=== PATIENT | male | born 1990 | race African-American/Black ===

== ENCOUNTER 2019-12-26 10:54 | Emergency (ER) | payer OTHER, SELFPAY ==
[2019-12-26 11:02] VITALS: BP 139/82; PULSE 84; RESP 18; TEMP 36.2; O2SAT 98
--- NOTE | 2019-12-26 11:34 | ED.EYEPROB ---
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 He states he was working with a trailer when he felt something go into his left eye. He has eye redness, watering and light sensitivity. He feels like something is in his eye. He denies history of glasses or contact use. chief complaint: eye redness Onset (ago): minute(s) Location: left eye Eye Symptoms: redness and foreign body sensation Place: work Related Data Allergies Allergy/AdvReac Type Severity Reaction Status Date / Time No Known Allergies Allergy Verified 12/26/19 11:04 Review of Systems Review of Systems: All systems reviewed & are unremarkable except as noted in HPI and below PMFSH Past Medical History Medical History (Updated 12/26/19 @ 12:06 by Rajwinder Lopez MD) Patient denies medical problems Surgical History Surgical History (Updated 12/26/19 @ 11:39 by Rajwinder Lopez MD) No history of previous surgery Social History Social History Gender identity (if verbalized by the patient): Male Exam Const: General: alert Orientation/consciousness: patient oriented x3 HENMT: Head: normocephalic and atraumatic Face and sinus: face symmetric Throat: uvula midline Eyes: Alignment and Position: alignment normal and position normal Periorbital: periorbital findings normal Eyelids: eyelids normal Conjunctivae: conjunctival abnormality left conjunctival injection Cornea: corneas abnormal on the left abrasion at the following clock position (3) and other (circular ) and fluorescein used Pupils: Equal, round and reactive pupils present EOM: EOMs intact bilaterally Resp: Effort & Inspection: normal respiratory effort Skin: General skin exam: normal color Rashes: no rashes Course Reevaluation(s) Reevaluation #1: I Discussed with patient that no foreign body seen but he has a corneal abrasion Date: 12/26/19 Vital Signs Vital signs: Vital Signs Temperature 97.1 F L 12/26/19 11:02 Pulse Rate 84 12/26/19 11:02 Respiratory Rate 18 12/26/19 11:02 Blood Pressure 139/82 12/26/19 11:02 Pulse Oximetry 98 12/26/19 11:02 Temperature 97.1 F L 12/26/19 11:02 Pulse Rate 84 12/26/19 11:02 Respiratory Rate 18 12/26/19 11:02 Blood Pressure 139/82 12/26/19 11:02 Pulse Oximetry 98 12/26/19 11:02 Discharge Plan Discharge Clinical Impression: Abrasion of cornea, left Qualifiers: Encounter type: initial encounter Qualified Code(s): S05.02XA - Injury of conjunctiva and corneal abrasion without foreign body, left eye, initial encounter Patient Disposition: Home, Self-Care Condition: Stable Instructions: Abrasion (ED) Additional Instructions: You will need to follow up with an eye doctor on your return home. REturn if your symptoms worsen. Prescriptions: New ciprofloxacin HCl 0.3 % drops See Rx Instructions .ROUTE .COMPLEX Qty: 2.5 RF: 0 Follow-up/Referrals: Tigre,Oskar Devries MD [Primary Care Provider] - Discharge Date/Time: 12/26/19 12:24
== END 2019-12-26 12:24 | disposition home or self-care (01) ==
PROVIDERS: Emergency Provider General Practice; PCP Internal Medicine
DX: S05.02XA Injury of conjunctiva and corneal abrasion without foreign body, left eye, initial encounter (principal); W22.8XXA Striking against or struck by other objects, initial encounter
CPT/HCPCS: 99283; A9270